=== PATIENT | male | born 1990 | race Caucasian/White ===

== ENCOUNTER 2017-07-04 15:56 | Emergency (ER) | payer OTHER ==
[~2017-07-04] VITALS: Ht 177.8 cm; Wt 145.2 kg
[~2017-07-04 15:56] MED LIST: DIPH25TA24 PO; MELA1TAB49 PO; OXYC-57 PO
[2017-07-04 16:02] VITALS: Ht 177.8 cm; Wt 145.2 kg
[2017-07-04] MEDS ORDERED: SODIUM CHLORIDE 0.9% 1000ML 1,000 ML IV STA (16:30)
[2017-07-04] MEDS ORDERED: PROCHLORPERAZINE 5 MG/ML 2 ML VIAL IV STA (16:30)
[2017-07-04] MEDS ORDERED: DiphenhydrAMINE HCL 50 MG/ML VIAL IV STA (16:30)
[2017-07-04] MEDS ORDERED: DOXE25CA2 PO (16:50)
[2017-07-04] MEDS ORDERED: PNC/500 PO (16:50)
[2017-07-04] MEDS ORDERED: OXYC-643 PO (16:50)
[2017-07-04] MEDS ORDERED: IBUP-1050 PO (16:50)
--- NOTE | 2017-07-04 16:52 | EMERGENCY ROOM VISIT NOTE ---
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 complains of headache in the frontal area , 7/10 in severity with photo and phonophobia. Denies any h/o migraine. denies any nausea, vomiting or neck stiffness. denies any fevers but has had chills with sweating. also c/o chest pain and SOB prior to arrival which is now resolved. c/o epigastric pain which resolved after a BM. had some dental work and was prescribed pencillin, Tylenol #3 and Percocet. He is concerned about sepsis Source of History: patient Quality: ache Review of Systems See HPI for pertinent positives & negatives. A total of 10 systems reviewed and were otherwise negative. Past Medical/Surgical History Medical Problems: (1) No Known Active Medical Problems Family History FH: migraines Hypertension Social History Smoking Status: Current Every Day Smoker Alcohol Use: none Drug Use: none Marital Status: single Housing Status: lives with family Occupation Status: unemployed Current/Historical Medications Scheduled Azithromycin (Zithromax Z-Yevgeniy), 1 PKT PO UD Penicillin V Potassium (Penicillin V Potassium), 500 MG PO QID Scheduled PRN Doxepin Hcl (Sinequan), 25 MG PO HS PRN for Sleep Ibuprofen (Advil), 800 MG PO Q8 PRN for Pain Oxycodone/Acetaminophen 5MG/325MG (Oxycodone/Acetaminophen 5MG/325MG), 1 TAB PO Q6H PRN for Pain Physical Exam Vital Signs Date Time Temp Pulse Resp B/P (MAP) Pulse Ox O2 Delivery O2 Flow Rate FiO2 07/04/17 20:35 36.6 86 20 143/57 100 07/04/17 18:50 86 20 143/57 100 Room Air 07/04/17 17:44 36.6 72 20 168/68 100 Room Air 07/04/17 17:23 69 22 165/73 98 07/04/17 17:07 69 07/04/17 16:02 36.6 68 22 172/72 97 Room Air Physical Exam GENERAL: Patient is in no acute distress. HEENT: No acute trauma, normocephalic atraumatic, mucous membranes moist, no nasal congestion, no scleral icterus. NECK: No stridor, no adenopathy, no meningismus, trachea is midline. LUNGS: Clear to auscultation bilaterally, no wheeze, no rhonchi, breath sounds equal. HEART: Without murmurs gallops or rubs, regular rate and rhythm. ABDOMEN: Soft, nontender, bowel sounds positive, no hernias, no peritonitis. EXTREMITIES: No cyanosis or edema, full range of motion of all the joints without pain or difficulty, no signs for acute trauma. NEUROLOGIC: Oriented x 3, no acute motor or sensory deficits, no focal weakness. SKIN: No rash, no jaundice, no diaphoresis. Medical Decision & Procedures ER Provider Diagnostic Interpretation: [~ rep ct add3]] ANGIOGRAPHY HEAD COMBO HISTORY: Mental status change headache TECHNIQUE: Multiaxial CT images of the head were performed both before and after the intravenous administration of contrast to evaluate the major cerebral vessels. Maximum intensity projection images were also obtained. A dose lowering technique was utilized adhering to the principles of ALARA. COMPARISON: None. FINDINGS: There is no mass, hematoma, midline shift, or acute infarct. Visualized intracranial internal carotid arteries, distal vertebral arteries, and basilar artery are widely patent. There is no significant stenosis, occlusion, or aneurysm seen within the bilateral ACAs, MCAs, or chief of surgery. IMPRESSION: No significant stenosis, occlusion, or aneurysm within the [place]. Negative CT of the brain The above report was generated using voice recognition software. It may contain grammatical, syntax or spelling errors. Electronically signed by: Claus Silva M.D. 07/04/2017 6:48 PM Dictated Date/Time: 07/04/2017 6:46 PM [~ rep ct add3]] CHEST 2 VIEWS ROUTINE CLINICAL HISTORY: cp eval for pna dyspnea COMPARISON STUDY: No previous studies for comparison. FINDINGS: Small perihilar parenchymal infiltrate on the right. Lungs otherwise appear clear. Diaphragms are smooth. The costophrenic angles are sharp. IMPRESSION: Small right perihilar parenchymal infiltrate. Laboratory Results 07/04/17 17:16 Red Blood Count 5.04, Mean Corpuscular Volume 84.3, Mean Corpuscular Hemoglobin 29.0, Mean Corpuscular Hemoglobin Concent 34.4, Mean Platelet Volume 9.4, Neutrophils (%) (Auto) 70.0, Lymphocytes (%) (Auto) 21.3, Monocytes (%) (Auto) 6.5, Eosinophils (%) (Auto) 1.6, Basophils (%) (Auto) 0.4, Neutrophils # (Auto) 7.48, Lymphocytes # (Auto) 2.27, Monocytes # (Auto) 0.69, Eosinophils # (Auto) 0.17, Basophils # (Auto) 0.04 07/04/17 17:16 Test 07/04/17 17:16 07/04/17 17:31 White Blood Count 10.67 K/uL (4.8-10.8) Red Blood Count 5.04 M/uL (4.7-6.1) Hemoglobin 14.6 g/dL (14.0-18.0) Hematocrit 42.5 % (42-52) Mean Corpuscular Volume 84.3 fL (80-100) Mean Corpuscular Hemoglobin 29.0 pg (25-34) Mean Corpuscular Hemoglobin Concent 34.4 g/dl (32-36) Platelet Count 277 K/uL (130-400) Mean Platelet Volume 9.4 fL (7.4-10.4) Neutrophils (%) (Auto) 70.0 % Lymphocytes (%) (Auto) 21.3 % Monocytes (%) (Auto) 6.5 % Eosinophils (%) (Auto) 1.6 % Basophils (%) (Auto) 0.4 % Neutrophils # (Auto) 7.48 K/uL (1.4-6.5) Lymphocytes # (Auto) 2.27 K/uL (1.2-3.4) Monocytes # (Auto) 0.69 K/uL (0.11-0.59) Eosinophils # (Auto) 0.17 K/uL (0-0.5) Basophils # (Auto) 0.04 K/uL (0-0.2) RDW Standard Deviation 42.3 fL (36.4-46.3) RDW Coefficient of Variation 13.7 % (11.5-14.5) Immature Granulocyte % (Auto) 0.2 % Immature Granulocyte # (Auto) 0.02 K/uL (0.00-0.02) Anion Gap 9.0 mmol/L (3-11) Est Creatinine Clear Calc Drug Dose 165.8 ml/min Estimated GFR () 123.0 Estimated GFR (Non- 106.2 BUN/Creatinine Ratio 10.1 (10-20) Calcium Level 8.9 mg/dl (8.5-10.1) Total Bilirubin 0.3 mg/dl (0.2-1) Direct Bilirubin < 0.1 mg/dl (0-0.2) Aspartate Amino Transf (AST/SGOT) 24 U/L (15-37) Alanine Aminotransferase (ALT/SGPT) 38 U/L (12-78) Alkaline Phosphatase 92 U/L (45-117) Troponin I < 0.015 ng/ml (0-0.045) Total Protein 7.6 gm/dl (6.4-8.2) Albumin 3.9 gm/dl (3.4-5.0) Lipase 114 U/L (73-393) Bedside Lactic Acid Venous 0.89 mmol/L (0.90-1.70) Medications Administered Medications (Trade) Dose Ordered Sig/Afshan Route Start Time Stop Time Status Last Admin Dose Admin Prochlorperazine Edisylate (Compazine Inj) 10 mg NOW STAT IV 07/04/17 16:30 07/04/17 16:33 DC 07/04/17 17:28 10 MG Diphenhydramine HCl (Benadryl Inj) 50 mg NOW STAT IV 07/04/17 16:30 07/04/17 16:33 DC 07/04/17 17:28 50 MG Sodium Chloride 1,000 ml @ 999 mls/hr Q1H1M STAT IV 07/04/17 16:30 07/04/17 17:30 DC 07/04/17 17:28 999 MLS/HR ECG Per My Interpretation Indication: chest pain Rate (beats per minute): 68 Rhythm: normal sinus Findings: no acute ischemic change, no ectopy Comparison ECG Date: no prior available Medical Decision Prior records/ancillary studies reviewed. Triage Nursing notes reviewed and agree them. The patient's history was concerning for headache. Differential diagnosis: Etiologies such as migraine headache, meningitis, sinusitis, CO exposure, ICH, SAH, infection, tumor, headache, sinus thrombosis, arterial dissection, as well as others were entertained. Physical examination findings: As above. Non-focal. ER treatment provided: CBC, CMP, Head CTA, EKG, CXR were ordered. He was given compazine and benadryl along with NSS On reassessment the patient felt better. Diagnostics interpreted by me: ECG: NSR , HR was 64 The labs were unremarkable. Imaging studies: CXR revealed a small right sided parenchymal infiltrate Head CTA was negative By the evaluation outlined above emergent etiologies such as meningitis, sinusitis, CO exposure, ICH, SAH, infection, temporal arteritis, tumor, sinus thrombosis, arterial dissection, as well as others were deemed relatively unlikely. The patient was informed about the findings as listed above. All questions were answered and he was pleased with the treatment. Return instructions were outlined and the patient was discharged in stable condition. Outpatient prescription management: azithromycin 6 day home pack Referral: The patient was referred back to his primary care physician for follow-up in 2 to 3 days for a recheck of the current condition. 26-year-old male with no significant past medical history presented with complaints of a pounding headache that started this morning. He also complained of a stomachache which had resolved after a bowel movement, chest pain and shortness of breath which had resolved by the time he was in the ER. He denied any fevers but had chills with sweating. CBC, CMP, EKG and chest x-ray were ordered. Head CTA was ordered to rule out any intracranial bleed which was negative. He was given Compazine and Benadryl which seemed to help with the symptoms. It is likely his symptoms were secondary to migraine headache. He was recommended to follow-up with his family doctor. EKG was unremarkable but chest x-ray revealed a small right sided perihilar parenchymal infiltrate and he was discharged with six-day azithromycin home pack. The chart was completed utilizing [employer] voice recognition software. Grammatical errors, random word insertions, pronoun errors, and incomplete sentences are an occasional consequence of this system due to software limitations, ambient noise, and hardware issues. Any formal questions or concerns about the content, text, or information contained within the body of this dictation should be directly addressed to the physician for clarification. Impression Primary Impression: Headache Departure Information Prescriptions Azithromycin (ZITHROMAX Z-YEVGENIY) 250 Mg Tab 1 PKT PO UD for 5 Days, #6 TAB Prov: Glenys Latham MD 07/04/17 Referrals Beto Chiu III, M.D. (PCP) Patient Instructions My [facility] Resident Tracking Resident Involvement: Resident Care Provided Care Provided: Adult ED
[2017-07-04 17:38] LABS: BASO % 0.4 %; BASO ABS # 0.04 K/uL (0-0.2); EOS % 1.6 %; EOS ABS # 0.17 K/uL (0-0.5); HEMATOCRIT 42.5 % (42-52); HEMOGLOBIN 14.6 g/dL (14.0-18.0); IG# 0.02 K/uL (0.00-0.02); LYMPH % 21.3 %; LYMPH ABS # 2.27 K/uL (1.2-3.4); MEAN CELL VOLUME 84.3 fL (80-100); MEAN CORPUSCULAR HGB CONC 34.4 g/dl (32-36); MEAN PLATELET VOLUME 9.4 fL (7.4-10.4); MONO % 6.5 %; MONO ABS # 0.69 K/uL (0.11-0.59); NEUT ABS # 7.48 K/uL (1.4-6.5); PLATELET COUNT 277 K/uL (130-400); RED CELL DISTRIBUTION WIDTH CV 13.7 % (11.5-14.5); RED CELL DISTRIBUTION WIDTH SD 42.3 fL (36.4-46.3); WHITE BLOOD COUNT 10.67 K/uL (4.8-10.8)
--- NOTE | 2017-07-04 18:10 | EMERGENCY ROOM VISIT NOTE ---
History Report prepared by Brent: Cayetano Umaña Under the Supervision of: Dr. Tomer Pérez M.D. First contact with patient: 15:58 Chief Complaint: HEADACHE Stated Complaint: UPPER GASTRIC AB PAIN, HEADACHE History of Present Illness The patient is a 26 year old male who presents to the Emergency Room with complaints of a persistent frontal headache that started 5 hours ago. He describes the headache as "pounding", and rates the pain as a 7 out of 10 in severity. The patient says that he is unsure whether it had a sudden onset, but notes that it first started very mildly. He adds that he has been photophobic with the headache. The patient notes that he has had some chills and sweating as well. He denies any facial pain, fevers, numbness, weakness, neck pain, or neck stiffness. He adds that he had abdominal pain earlier this afternoon, but that resolved upon having bowel movement. The patient states that he had some shortness of breath and chest pain, which have both resolved. He says that he was at the [facility] 2 days ago to get a tooth filling done, and was put on a round of Augmentin. He states his tooth pain is now resolved and he does not have any facial pain or tenderness. He notes a family history of migraines (including the patient's father) but notes no personal history of headaches. His mother, who is a nurse, is requesting that we order labs to rule out sepsis. Source of History: patient Onset: 5 hours ago Position: head (frontal) Symptom Intensity: 7/10 pain Quality: other (pounding) Timing: other (persistent) Associated Symptoms: + chills, + chest pain (resolved), + SOB (resolved), + abdominal pain (resolved), No fevers, No neck pain (or stiffness), No weakness, No numbness Note: Associated symptoms: Photophobia. Denies facial pain. Review of Systems See HPI for pertinent positives & negatives. A total of 10 systems reviewed and were otherwise negative. Past Medical & Surgical Medical Problems: (1) No Known Active Medical Problems Family History FH: migraines Hypertension Social History Smoking Status: Current Every Day Smoker Alcohol Use: none Drug Use: none Marital Status: single Housing Status: lives with family Occupation Status: unemployed Current/Historical Medications Scheduled Penicillin V Potassium (Penicillin V Potassium), 500 MG PO QID Scheduled PRN Doxepin Hcl (Sinequan), 25 MG PO HS PRN for Sleep Ibuprofen (Advil), 800 MG PO Q8 PRN for Pain Oxycodone/Acetaminophen 5MG/325MG (Oxycodone/Acetaminophen 5MG/325MG), 1 TAB PO Q6H PRN for Pain Allergies Coded Allergies: No Known Allergies (Unverified , 08/04/14) Physical Exam Vital Signs Date Time Temp Pulse Resp B/P (MAP) Pulse Ox O2 Delivery O2 Flow Rate FiO2 07/04/17 17:44 36.6 72 20 168/68 100 Room Air 07/04/17 17:23 69 22 165/73 98 07/04/17 17:07 69 07/04/17 16:02 36.6 68 22 172/72 97 Room Air Physical Exam Constitutional: Vital signs reviewed. Eyes: Pupils are equal round reactive to light. Conjunctiva are noninjected. ENT: Pharynx is clear without erythema or exudate. Mucous membranes are moist. No evidence of dental abscess or Peter's angina. Neck supple without meningeal signs. Respiratory: Clear to auscultation bilaterally. Breath sounds are equal bilaterally. Cardiovascular: Regular rate and rhythm. No rubs or gallops. GI: Soft, nondistended and nontender. Bowel sounds are present. Musculoskeletal: No peripheral edema. No lower extremity tenderness. Integumentary: No cyanosis. Neurological: The patient is awake and alert. Cranial nerves II-XII are intact. Motor is 5 out of 5 all extremities. Sensation is intact to light touch all extremities. Normal speech. No pronator drift. Psychiatric: Normal affect. Medical Decision & Procedures Laboratory Results 07/04/17 17:16 Red Blood Count 5.04, Mean Corpuscular Volume 84.3, Mean Corpuscular Hemoglobin 29.0, Mean Corpuscular Hemoglobin Concent 34.4, Mean Platelet Volume 9.4, Neutrophils (%) (Auto) 70.0, Lymphocytes (%) (Auto) 21.3, Monocytes (%) (Auto) 6.5, Eosinophils (%) (Auto) 1.6, Basophils (%) (Auto) 0.4, Neutrophils # (Auto) 7.48, Lymphocytes # (Auto) 2.27, Monocytes # (Auto) 0.69, Eosinophils # (Auto) 0.17, Basophils # (Auto) 0.04 Test 07/04/17 17:16 07/04/17 17:31 White Blood Count 10.67 K/uL (4.8-10.8) Red Blood Count 5.04 M/uL (4.7-6.1) Hemoglobin 14.6 g/dL (14.0-18.0) Hematocrit 42.5 % (42-52) Mean Corpuscular Volume 84.3 fL (80-100) Mean Corpuscular Hemoglobin 29.0 pg (25-34) Mean Corpuscular Hemoglobin Concent 34.4 g/dl (32-36) Platelet Count 277 K/uL (130-400) Mean Platelet Volume 9.4 fL (7.4-10.4) Neutrophils (%) (Auto) 70.0 % Lymphocytes (%) (Auto) 21.3 % Monocytes (%) (Auto) 6.5 % Eosinophils (%) (Auto) 1.6 % Basophils (%) (Auto) 0.4 % Neutrophils # (Auto) 7.48 K/uL (1.4-6.5) Lymphocytes # (Auto) 2.27 K/uL (1.2-3.4) Monocytes # (Auto) 0.69 K/uL (0.11-0.59) Eosinophils # (Auto) 0.17 K/uL (0-0.5) Basophils # (Auto) 0.04 K/uL (0-0.2) RDW Standard Deviation 42.3 fL (36.4-46.3) RDW Coefficient of Variation 13.7 % (11.5-14.5) Immature Granulocyte % (Auto) 0.2 % Immature Granulocyte # (Auto) 0.02 K/uL (0.00-0.02) Bedside Lactic Acid Venous 0.89 mmol/L (0.90-1.70) Laboratory results as reviewed by me. Medications Administered Medications (Trade) Dose Ordered Sig/Afshan Route Start Time Stop Time Status Last Admin Dose Admin Prochlorperazine Edisylate (Compazine Inj) 10 mg NOW STAT IV 07/04/17 16:30 07/04/17 16:33 DC 07/04/17 17:28 10 MG Diphenhydramine HCl (Benadryl Inj) 50 mg NOW STAT IV 07/04/17 16:30 2/19/18 16:33 DC 07/04/17 17:28 50 MG Sodium Chloride 1,000 ml @ 999 mls/hr Q1H1M STAT IV 07/04/17 16:30 07/04/17 17:30 DC 07/04/17 17:28 999 MLS/HR ED Course 1605: The patient was evaluated in room B3A by the resident, Dr. Latham. A complete history and physical exam was performed. 1624: The patient was evaluated in room B3A by me. A complete history and physical exam was performed. 1630: Ordered NSS 1000 ml @ 999 mls/hr IV, Benadryl Inj 50 mg IV, Compazine Inj 10 mg IV. Medical Decision This is a 26-year-old male who presents with headache. Differential diagnosis includes migraine headache, tension headache, intracranial mass, intracranial hemorrhage, cerebral aneurysm. I did perform a limited focused review of portions of the patient's old chart on the electronic medical record. The patient has had no recent pertinent visits to this hospital. Resident Physician Supervision Note: I did evaluate and examine this patient myself. I did guide management for the patient. I agree with the resident's (Dr. Latham) assessment as discussed. Please see the resident's dictation for further details. I did evaluate the patient as noted above. The patient is presenting with a headache for the past 4 hours. It was not sudden in onset as far as he can remember. He stated it did not have maximal intensity at onset. He is neurologically intact. He is afebrile here. IV access was established. I did order the patient's 12-lead EKG and chest x-ray as described above. I did order and review the patient's blood work as noted in the electronic medical record. His CBC is normal. Other labs are pending. I did order a CT angiogram with and without contrast of the head. This is pending at this time and the patient was signed out to Dr. Yu. He was treated with Compazine and Benadryl IV. He was also given normal saline IV. Medication Reconcilliation Current Medication List: was personally reviewed by me Blood Pressure Screening Patient's blood pressure: Elevated blood pressure Impression Primary Impression: Headache Scribe Attestation The scribe's documentation has been prepared under my direct and personally reviewed by me in its entirety. I confirm that the note above accurately reflects all work, treatment, procedures, and medical decision making performed by me. Departure Information Dispostion Still a Patient Referrals Beto Chiu III, M.D. (PCP) Patient Instructions My [facility] Health Problem Qualifiers Primary Impression: Headache Headache type: unspecified
[2017-07-04] MEDS ORDERED: OPTIRAY 320 IV PRN (18:15)
[2017-07-04 18:26] LABS: BLOOD UREA NITROGEN 10 mg/dl (7-18); CALCIUM 8.9 mg/dl (8.5-10.1); CARBON DIOXIDE 26 mmol/L (21-32); CREATININE 0.99 mg/dl (0.60-1.40); GLUCOSE 97 mg/dl (70-99)
--- NOTE | 2017-07-04 18:50 | DIAGNOSTIC IMAGING REPORT ---
ANGIOGRAPHY HEAD COMBO HISTORY: Mental status change headache TECHNIQUE: Multiaxial CT images of the head were performed both before and after the intravenous administration of contrast to evaluate the major cerebral vessels. Maximum intensity projection images were also obtained. A dose lowering technique was utilized adhering to the principles of ALARA. COMPARISON: None. FINDINGS: There is no mass, hematoma, midline shift, or acute infarct. Visualized intracranial internal carotid arteries, distal vertebral arteries, and basilar artery are widely patent. There is no significant stenosis, occlusion, or aneurysm seen within the bilateral ACAs, MCAs, or rotary furnace operator. IMPRESSION: No significant stenosis, occlusion, or aneurysm within the [place]. Negative CT of the brain The above report was generated using voice recognition software. It may contain grammatical, syntax or spelling errors. Electronically signed by: Claus Silva M.D. 07/04/2017 6:48 PM Dictated Date/Time: 07/04/2017 6:46 PM
[2017-07-04 19:24] LABS: ALKALINE PHOSPHATASE 92 U/L (45-117); ALT/SGPT 38 U/L (12-78); AST/SGOT 24 U/L (15-37); LIPASE 114 U/L (73-393); SODIUM 139 mmol/L (136-145); TOTAL PROTEIN 7.6 gm/dl (6.4-8.2)
--- NOTE | 2017-07-04 19:34 | DIAGNOSTIC IMAGING REPORT ---
CHEST 2 VIEWS ROUTINE CLINICAL HISTORY: cp eval for pna dyspnea COMPARISON STUDY: No previous studies for comparison. FINDINGS: Small perihilar parenchymal infiltrate on the right. Lungs otherwise appear clear. Diaphragms are smooth. The costophrenic angles are sharp. IMPRESSION: Small right perihilar parenchymal infiltrate. The above report was generated using voice recognition software. It may contain grammatical, syntax or spelling errors. Electronically signed by: Claus Silva M.D. 07/04/2017 7:32 PM Dictated Date/Time: 07/04/2017 7:32 PM
[2017-07-04] MEDS ORDERED: AZITTAB PO (19:48)
[2017-07-04 20:00] LABS: ALBUMIN 3.9 gm/dl (3.4-5.0)
[2017-07-04 20:35] VITALS: BP 143/57; PULSE 86; TEMP 36.6; O2SAT 100
--- NOTE | 2017-07-05 02:57 | EMERGENCY ROOM VISIT NOTE ---
ED Visit Note This patient was signed out to me at the change of shift by Dr. Pérez as the supervising physician to Dr. Latham. CT scan of the head was pending given the patient's complaints of headache. ANGIOGRAPHY HEAD COMBO HISTORY: Mental status change headache TECHNIQUE: Multiaxial CT images of the head were performed both before and after the intravenous administration of contrast to evaluate the major cerebral vessels. Maximum intensity projection images were also obtained. A dose lowering technique was utilized adhering to the principles of ALARA. COMPARISON: None. FINDINGS: There is no mass, hematoma, midline shift, or acute infarct. Visualized intracranial internal carotid arteries, distal vertebral arteries, and basilar artery are widely patent. There is no significant stenosis, occlusion, or aneurysm seen within the bilateral ACAs, MCAs, or client service supervisor. IMPRESSION: No significant stenosis, occlusion, or aneurysm within the [place]. Negative CT of the brain The above report was generated using voice recognition software. It may contain grammatical, syntax or spelling errors. Electronically signed by: Claus Silva M.D. 07/04/2017 6:48 PM Dictated Date/Time: 07/04/2017 6:46 PM The results of this study were discussed with the patient by Dr. Latham, please see her notes for further details. It seems that the patient was likely suffering from a migraine headache. Chest x-ray is concerning for pulmonary infiltrate. Patient will be treated with a course of azithromycin. He will continue Tylenol as needed for pain or fever. Patient was discharged to follow- up with his PCP. He will return to the ER for worsening of symptoms or any medical concerns.
== END 2017-07-04 20:36 | disposition home or self-care (01) ==
LOC: EDBD 15:56 → C.EDB 15:58
DX: R51 Headache (principal); F17.200 Nicotine dependence, unspecified, uncomplicated

== ENCOUNTER 2017-08-13 21:38 | Emergency (ER) | payer OTHER ==
[~2017-08-13] VITALS: Ht 177.8 cm; Wt 139.5 kg
[~2017-08-13 21:38] MED LIST changes: -DIPH25TA24 PO; +DOXE25CA2 PO; +IBUP-1050 PO; -MELA1TAB49 PO; -OXYC-57 PO; +OXYC-643 PO; +PNC/500 PO
[2017-08-13 21:43] VITALS: TEMP 36.8; Ht 177.8 cm; Wt 139.5 kg
[2017-08-13 21:55] VITALS: BP 173/72; PULSE 102; O2SAT 98
[2017-08-13] MEDS ORDERED: AMOXICIL/CLAVU 875MG HOME PACK PO ONE (22:00)
[2017-08-13] MEDS ORDERED: OXYCODONE IR HOME PACK PO ONE (22:00)
[2017-08-13] MEDS ORDERED: OXYC1TAB3 PO (22:10)
[2017-08-13] MEDS ORDERED: AMOX875T PO (22:10)
--- NOTE | 2017-08-13 23:32 | EMERGENCY ROOM VISIT NOTE ---
History First contact with patient: 21:46 Chief Complaint: INFECTION Stated Complaint: PILONIDAL CYST Nursing Triage Summary: pt reports HX of Pilonidal Cysts states he feels like he has one now reports pain to posterior History of Present Illness The patient is a 26 year old male who presents to the Emergency Room with complaints of rectal discomfort has a history of pattern analysis with infections. 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 He called him on Tuesday to make an appointment for surgical excision of his spinal tract. He has had multiple infections. Patient states he started having discomfort on Tuesday and has gotten progressively worse. Patient denies drainage, redness to the area, fever, chills, nausea, vomiting, diarrhea, abdominal pain. Patient is requesting antibiotics. He states he does not want to have it drained today as he wants to have surgery for this. Tetanus is current. Review of Systems An 10 system review of systems was completed with positives and pertinent negatives listed in the HPI. Past Medical/Surgical History Medical Problems: (1) No Known Active Medical Problems Pilonidal cyst Family History FH: migraines Hypertension Social History Smoking Status: Current Every Day Smoker Alcohol Use: none Drug Use: none Marital Status: in relationship Housing Status: lives with family Occupation Status: unemployed Current/Historical Medications Scheduled Amoxicillin & Pot Clavulanate (Augmentin 875-125 mg), 1 TAB PO BID Scheduled PRN Doxepin Hcl (Sinequan), 25 MG PO HS PRN for Sleep Oxycodone Immediate Rel Tab (Roxicodone Ir), 1-2 TAB PO Q4H PRN for Severe Pain Physical Exam Vital Signs Date Time Temp Pulse Resp B/P (MAP) Pulse Ox O2 Delivery O2 Flow Rate FiO2 08/13/17 21:55 102 16 173/72 98 Room Air 08/13/17 21:43 36.8 108 18 184/81 97 Room Air Physical Exam VITALS: Vitals are noted on the nurse's note and reviewed by myself. Vital signs hypertensive GENERAL: Pleasant male, in no acute distress, nondiaphoretic, well-developed well-nourished. SKIN: Capillary reflex less than 2 seconds. HEENT: Normocephalic. PERRLA. EOMI. Nares patent. Mucous membranes moist. Neck is supple without nuchal rigidity. HEART: Regular rate and rhythm without murmurs gallops or rubs. LUNGS: Clear to auscultation bilaterally without wheezes, rales or rhonchi. No retractions or accessory muscle use. ABDOMEN: Positive bowel sounds x 4. Normal tympanic percussion. Soft, nontender, without masses or organomegaly. Coello sign negative. No guarding or rebound tenderness. Rectal exam: No fluctuance over the pilonidal tract area and no redness present. Minimal tenderness over the gluteal cleft. [employer] present of the nurse Katya. MUSCULOSKELETAL: No gross musculoskeletal defects. NEURO: Patient was alert and oriented to person place and time. Normal sensation to light and sharp touch. No focal neurological deficits. Medical Decision & Procedures Medications Administered Medications (Trade) Dose Ordered Sig/Afshan Route Start Time Stop Time Status Last Admin Dose Admin Amoxicillin/ Clavulanate Potassium (Augmentin 875MG Home Pack) 1 homepack UD ONCE PO 08/13/17 22:00 08/13/17 22:01 DC 08/13/17 22:17 1 HOMEPACK Oxycodone HCl (Roxicodone Immediate Rel 5MG Home Pack) 1 homepack UD ONCE PO 08/13/17 22:00 08/13/17 22:01 DC 08/13/17 22:17 1 HOMEPACK ED Course Prior records reviewed and summarized as above. Triage Nursing notes reviewed. Additional history obtained from girlfriend The patient's history was concerning for rectal discomfort Differential diagnosis: Etiologies such as cellulitis, abscess, MRSA infection, necrotizing fasciitis, dermatitis, drug eruption, as well as others were entertained.. Physical examination: The physical examination was consistent with pilonidal cyst with developing infection ER treatment provided: Augmentin, OxyIR On reassessment the patient felt better. Diagnostics interpreted by me: Deferred This appears to be isolated pilonidal cyst with developing infection. Patient was offered I&D in the ER and adamantly refuses. Patient did not really have any fluctuance on exam. He had mild tenderness over the area of concern. He was afebrile nontoxic. He states he would like to have surgery on this and will follow up next week with his surgeon. He was started on antibiotics. He was strongly encouraged to follow-up with his family doctor for his ongoing elevated blood pressure for the past few years. He was strongly encouraged to return to the ER mediate for fevers, vomiting, spreading infection, worsening signs or symptoms or as needed. By the evaluation outlined above emergent etiologies such as necrotizing fasciitis as well as others were deemed relatively unlikely. The pt informed about the findings as listed above. All questions were answered and pleased with the treatment. Return instructions were outlined and the patient was discharged in stable condition. Outpatient prescription management: Augmentin, OxyIR Referral: The patient was referred back to surgery and primary care physician for follow- up in 2 to 3 days for a recheck of the current condition. The chart was completed utilizing [employer] Speech voice recognition software. Grammatical errors, random word insertions, pronoun errors, and incomplete sentences are an occassional consequence of this system due to software limitations, ambient noise, and hardware issues. Any formal questions or concerns about the content, text, or information contained within the body of this dictation should be directly addressed to the physician printing assistant for clarification. Medical Decision As above [place] Drug Monitoring Program Search Results: patient reviewed within database, no issues identified Medication Reconcilliation Current Medication List: was personally reviewed by me Blood Pressure Screening Patient's blood pressure: Elevated blood pressure Blood pressure disposition: Referred to PCP Impression Primary Impression: Pilonidal abscess Departure Information Dispostion Home / Self-Care Condition GOOD Prescriptions Oxycodone Immediate Rel Tab (ROXICODONE IR) 5 Mg Tab 1-2 TAB PO Q4H Y for Severe Pain, #10 TAB initial course Prov: Jody Dixon PA-C 08/13/17 Amoxicillin & Pot Clavulanate (Augmentin 875-125 mg) 1 Tab Tab 1 TAB PO BID for 9 Days, #18 TAB Prov: Jody Dixon PA-C 08/13/17 Forms WORK / SCHOOL INSTRUCTIONS, HOME CARE DOCUMENTATION FORM, IMPORTANT VISIT INFORMATION Patient Instructions Pilonidal Cyst, My [facility] Additional Instructions Recommend following up with your surgeon for your recurrent pilonidal abscess infection. Amoxicillin Clavulanate (Augmentin) 875mg: Take one pill twice daily for 10 days for your infection. All antibiotics can cause diarrhea. If this occurs and you feel worse or it does not resolve in 1-2 days follow up with your doctor or return to the Emergency Department as this could be signs of serious underlying problems. Any medication can cause an allergic reaction, stop the pills immediately and return to the ER for rash, hives, breathing difficulties, or swelling. DO NOT drive, drink alcohol, operate machinery, or perform dangerous activities today. You were given medications in the ER that can affect your ability to safely function or operate a vehicle. Oxycodone IR 5 : Take 1-2 pills every four hours for breakthrough pain. Avoid alcohol, operating machinery or dangerous equipment, working on ladders or roofs , DRIVING, or situations where being under the influence may be dangerous. It is recommended to use an [id number] stool softener such as Colace, 100mg twice daily while taking this medication to avoid constipation. Ibuprofen(Motrin, Advil) may be used for fever or pain. Use 600mg every six hours as needed. Take with food. Avoid using more than 2400mg in a 24 hour period. Do not use 2400mg per day for more than three consecutive days without physician direction. Prolonged inappropriate use can lead to stomach upset or ulcers. (AND/OR) Acetaminophen(Tylenol) may be used for fever or pain. Use 1000mg every six hours as needed. Avoid using more than 3000mg in a 24 hour period. Warm compresses to the affected area 4 times daily for 15-20 minutes. Rest and drink plenty of fluids. Continue current medications. Return to the ER for severe pain, persistent fevers, spreading redness, or any worsening of your condition. Follow up with your primary physician/surgeon within 2-3 days for a recheck of the current condition.
== END 2017-08-13 22:22 | disposition home or self-care (01) ==
LOC: C.EDB 21:40
DX: L05.01 Pilonidal cyst with abscess (principal); F17.200 Nicotine dependence, unspecified, uncomplicated; Z82.49 Family history of ischemic heart disease and other diseases of the circulatory system; Z82.0 Family history of epilepsy and other diseases of the nervous system; R03.0 Elevated blood-pressure reading, without diagnosis of hypertension